=== PATIENT | female | born 1985 | race Caucasian/White ===

== ENCOUNTER 2018-10-13 15:32 | Emergency (ER) | payer SELFPAY ==
[~2018-10-13] VITALS: Ht 162.6 cm; Wt 60.0 kg
[2018-10-13 15:40] VITALS: BP 131/91
[2018-10-13 16:05] LABS: BASOPHILS # (AUTO) 0.04 x10^3/uL (0-0.1); BASOPHILS % (AUTO) 0 % (0-1); EOSINOPHILS # (AUTO) 0.05 x10^3/uL (0-0.4); EOSINOPHILS % (AUTO) 1 % (1-7); LYMPHOCYTES # (AUTO) 2.47 x10^3/uL (1-3.4); LYMPHOCYTES % (AUTO) 30 % (22-44); MD NO; MEAN CORPUSCULAR HEMOGLOBIN 31.2 pg (27.0-34.8); MEAN CORPUSCULAR HGB CONC 34.1 g/dL (32.4-35.8); MEAN CORPUSCULAR VOLUME 91.4 fL (80-100); MEAN PLATELET VOLUME 9.6 fL (7.4-10.4); MONOCYTES % (AUTO) 9 % (2-9); NEUTROPHILS # (AUTO) 4.87 x10^3/uL (1.8-6.8); NEUTROPHILS % (AUTO) 60 % (42-75); PLATELET COUNT 233 x10^3/uL (130-400); RED BLOOD COUNT 4.52 x10^6/uL (3.82-5.3); RED CELL DISTRIBUTION WIDTH 12.2 % (9.6-15.2)
[2018-10-13 16:16] LABS: ALANINE AMINOTRANSFERASE 25 U/L (12-78); ALBUMIN 3.7 g/dL (3.4-5.0); ANION GAP 7 mmol/L (5-15); CALCIUM 8.5 mg/dL (8.5-10.1); CHLORIDE 107 mmol/L (98-107); CREATININE 0.51 mg/dL (0.55-1.02)
[2018-10-13 16:35] LABS: ALKALINE PHOSPHATASE 38 U/L (45-117); BILIRUBIN,TOTAL 0.2 mg/dL (0.2-1.0); TOTAL PROTEIN 7.2 g/dL (6.4-8.2)
--- NOTE | 2018-10-13 16:40 | NUR ---
ATTEMPTED TO RETRIEVE PT FROM LOBBY, NO ANSWER.
--- NOTE | 2018-10-13 17:09 | NUR ---
PT. IS A & O X 4 WITH C/O 2 WEEK HX OF VAGINAL BLEEDING AND CRAMPING. PT. STATES WITH INITIAL BLEEDING AND CRAMPING SHE PASSED A LARGE AMOUNT OF BLOOD WITH CLOTS AND TISSUE PRESENT. PT. REPORTS CONTINUED BLEEDING AND CRAMPING AND WAS SEEN [facility]. PT. WAS SENT TO THE ED FROM THERE FOR FURTHER EVALUATION. PT. IS PINK, WARM AND DRY. LUNGS ARE CTA. MM ARE PINK AND MOIST WITH PULSES +2 THROUGHOUT. PT. IS SITTING ON THE STRETCHER, NO ACUTE DISTRESS.
== END 2018-10-13 18:19 | disposition home or self-care (01) ==
LOC: ED 18:13
DX: O46.91 Antepartum hemorrhage, unspecified, first trimester (principal); Z3A.10 10 weeks gestation of pregnancy
CPT/HCPCS: 36415; 76830; 80053; 84702; 85025; 86901; 99284